=== PATIENT | male | born 1955 | race Caucasian/White ===

== ENCOUNTER 2024-12-22 13:23 | Outpatient (CLI) | payer MEDICARE, SELFPAY ==
--- OUTSIDE RECORDS SUMMARY | 2024-12-22 13:33 | XMS_ITS | Clinical Summary ---
Author Organization [facility] Address [address] [place] [address] Care Team Providers Care Head Chopper Name Role Phone Anamaria Jose DO Primary Care Provider +1- [phone] Allergies No known active allergies Encounters Date Type Department Care Team Description 11/12/2024 Telephone [facility] Neurology at [address] [place] [address] Greer Mcmanus DO Scheduling Appointments 11/08/2024 1:29 PM CDT - 11/08/2024 11:59 PM CDT Hospital Encounter [facility] [address] [place] [address] Low back pain, unspecified back pain laterality, unspecified chronicity, unspecified whether sciatica present; Radiculopathy, lumbar region; Anesthesia of skin; Paresthesia of skin Discharge Disposition: Discharge to home or self care from Last 3 Months Social History Tobacco Use Types Packs/Day Years Used Date Smoking Tobacco: Never Assessed Sex and Gender Information Value Date Recorded Sex Assigned at Not on file 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 Gender Identity Not on file Sexual Orientation Not on file Plan of Treatment Health Maintenance Due Date Last Done Comments Colon Cancer Screening-Colonoscopy 1955 Depression Screening 1955 Fall Risk Assessment 1955 Hepatitis C Screening 1955 Prostate Cancer Screening-PSA 1955 Hepatitis B Screening 09/22/1973 Zoster Vaccine (1 of 2) 09/22/2005 Abdominal Aortic Aneurysm (A AA) Screen 09/22/2020 Well Visit 65+ 09/22/2020 Covid-19 Vaccine (4 - 2024-25 season) 2024 07/11/2021, 12/13/2020, 11/22/2020 DTaP/Tdap/Td Vaccine (2 - Td or Tdap) 05/30/2024 Influenza Vaccine (#1) 2025 04/10/2022, 2020 Pneumococcal vaccine 65+ Completed 04/10/2022, 02/03 Procedures Procedure Name Priority Date/Time Associated Diagnosis Comments MRI LUMBAR SPINE W WO CONTRAST Schedule Routine, Read Routine (OP Routine) 11/08/2024 2:36 PM CDT Low back pain, unspecified back pain laterality, unspecified chronicity, unspecified whether sciatica present Radiculopathy, lumbar region Anesthesia of skin Paresthesia of skin from Last 3 Months Results * MRI Lumbar Spine W WO Contrast (11/08/2024 2:36 PM CDT) Anatomical Region Laterality Modality Spine N/A Magnetic Resonan ce 11/10/2024 7:42 AM CDT Impressions 11/10/2024 7:42 AM CDT 1. Large central focal disc extrusion at the L4-L5 level, severely narrowing the canal and compressing the traversing nerve roots within the lumbar thecal sac at this level. 2. Moderately severe degenerative disc disease with Modic type II endplate changes at L5-S1, with associated moderate bilateral foraminal narrowing. Electronically signed by: Bennie Roach M.D. Narrative 11/10/2024 7:42 AM CDT EXAMINATION: Magnetic resonance imaging (MRI) of the lumbar spine without and with contrast DATE: 11/08/2024 HISTORY: Lumbar radiculopathy. TECHNIQUE: MRI of the lumbar spine was performed before and after the administration of 15 mL intravenous gadolinium contrast according to standard protocol. FINDINGS: No prior study is available for comparison. Lumbar alignment is anatomic, albeit with minimal retrolisthesis of L5 on S1. Vertebral body heights are maintained without acute compression. There are Modic type II fatty endplate changes at the L5-S1 level with moderately severe underlying degenerative disc disease. Otherwise mild multilevel degenerative disc disease throughout the lumbar spine. The conus medullaris terminates at the level of L1-L2 and the distal spinal cord signal intensity is normal. No soft tissue abnormality is identified. T12-L1: There is a small broad-based disc bulge, slightly asymmetric to the left. No spinal stenosis. Mild bilateral facet hypertrophy. Mild left-sided foraminal narrowing. L1-L2: Small broad-based disc bulge. No spinal stenosis. Mild bilateral facet hypertrophy. No significant foraminal stenosis. L2-L3: Small broad-based disc bulge and infolding of the ligamentum flavum. No significant spinal stenosis. Mild bilateral facet hypertrophy. No significant foraminal stenosis. L3-L4: Small broad-based disc bulge and infolding of the ligamentum flavum. Mild spinal stenosis. Mild bilateral facet hypertrophy. Mild bilateral foraminal narrowing. L4-L5: There is herniated nucleus pulposus at this level, with a peripherally enhancing bulbous focal disc extrusion located centrally and measuring approximately 10 x 9 x 8 mm in size protruding into the central canal and causing severe stenosis and compressing the traversing nerve roots within the thecal sac. This lesion is probably best seen on image 8 of series 10. Moderately severe bilateral facet hypertrophy. Mild bilateral foraminal narrowing. L5-S1: Mild posterior disc hypertrophy. No spinal stenosis. Mild bilateral facet hypertrophy. Moderately severe bilateral foraminal narrowing. Procedure Note Bennie Roach MD - 11/10/2024 EXAMINATION: Magnetic resonance imaging (MRI) of the lumbar spine without and with contrast DATE: 11/08/2024 HISTORY: Lumbar radiculopathy. TECHNIQUE: MRI of the lumbar spine was performed before and after the administration of 15 mL intravenous gadolinium contrast according to standard protocol. FINDINGS: No prior study is available for comparison. Lumbar alignment is anatomic, albeit with minimal retrolisthesis of L5 on S1. Vertebral body heights are maintained without acute compression. There are Modic type II fatty endplate changes at the L5-S1 level with moderately severe underlying degenerative disc disease. Otherwise mild multilevel degenerative disc disease throughout the lumbar spine. The conus medullaris terminates at the level of L1-L2 and the distal spinal cord signal intensity is normal. No soft tissue abnormality is identified. T12-L1: There is a small broad-based disc bulge, slightly asymmetric to the left. No spinal stenosis. Mild bilateral facet hypertrophy. Mild left-sided foraminal narrowing. L1-L2: Small broad-based disc bulge. No spinal stenosis. Mild bilateral facet hypertrophy. No significant foraminal stenosis. L2-L3: Small broad-based disc bulge and infolding of the ligamentum flavum. No significant spinal stenosis. Mild bilateral facet hypertrophy. No significant foraminal stenosis. L3-L4: Small broad-based disc bulge and infolding of the ligamentum flavum. Mild spinal stenosis. Mild bilateral facet hypertrophy. Mild bilateral foraminal narrowing. L4-L5: There is herniated nucleus pulposus at this level, with a peripherally enhancing bulbous focal disc extrusion located centrally and measuring approximately 10 x 9 x 8 mm in size protruding into the central canal and causing severe stenosis and compressing the traversing nerve roots within the thecal sac. This lesion is probably best seen on image 8 of series 10. Moderately severe bilateral facet hypertrophy. Mild bilateral foraminal narrowing. L5-S1: Mild posterior disc hypertrophy. No spinal stenosis. Mild bilateral facet hypertrophy. Moderately severe bilateral foraminal narrowing. IMPRESSION: 1. Large central focal disc extrusion at the L4-L5 level, severely narrowing the canal and compressing the traversing nerve roots within the lumbar thecal sac at this level. 2. Moderately severe degenerative disc disease with Modic type II endplate changes at L5-S1, with associated moderate bilateral foraminal narrowing. Electronically signed by: Bennie Roach M.D. Anamaria Jose DO [facility] MRI PROCEDURES Final R esult from Last 3 Months Insurance MEDICARE MEDICARE Care Teams Head Chopper Relationship Specialty Start Date End Date Anamaria Jose DO [facility] [address] [address] PCP - General Family Medicine 11/03/24
--- OUTSIDE RECORDS SUMMARY | 2024-12-22 13:33 | XMS_ITS | Referral Summary ---
Author Organization [facility] Address [address] [place] [address] Care Team Providers Care Freight Weigher Name Role Phone Anamaria Jose Primary Care Provider +1- [phone] Encounters Date Type Department Care Team Description 11/12/2024 Telephone [facility] Neurology at [address] [place] [address] Greer Mcmanus DO Scheduling Appointments 11/08/2024 1:29 PM CDT - 11/08/2024 11:59 PM CDT Hospital Encounter 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 Anamaria Jose DO IM MRI PROCEDURES Final R esult from Last 3 Months Insurance MEDICARE MEDICARE Care Teams Freight Weigher Relationship Specialty Start Date End Date Anamaria Jose DO [address] [place] [address] DR MORRISSEY [address] [place] [id number] PCP - General Family Medicine 11/03/24
--- NOTE | 2024-12-22 14:34 | ECG_ITS ---
Test Date: 2024-12-22 14:51:17 Measurements Intervals [place] Rate: 103 P: 46 NE: 162 QRS: 24 QRSD: 93 T: 28 QT: 319 QTc: 419 Interpretive Statements SINUS TACHYCARDIA WITH FREQUENT VENTRICULAR PREMATURE COMPLEXES ABNORMAL RHYTHM ECG No previous ECG available for comparison Electronically Signed On 12-22-2024 15:27:26 CDT by Elijah Ortega M.D.
[2024-12-22 15:04] LABS: Add Urine Microscopic? YES; Appearance Urine Clear (Clear); Glucose Urine UA Negative (Negative); Leukocyte Esterase Ur Trace LEU/UL (Negative); Nitrate Urine Negative (Negative); Non Pathogenic Casts 0-2; Specific Grav Ur 1.013 (1.001-1.035)
[2024-12-22 15:12] LABS: INR 1.1; Prothrombin Time 13.9 Seconds (11.1-14.7)
[2024-12-22 15:13] LABS: Partial Thromboplastin Time 30.1 Seconds (22.3-36.8)
== END 2024-12-22 13:24 | disposition home or self-care (01) ==
LOC: ANHSURGERY 13:28
PROVIDERS: PCP Family Medicine; Visit Provider Neurological Surgery
DX: E78.5 Hyperlipidemia, unspecified (principal); M51.26 Other intervertebral disc displacement, lumbar region; Z01.818 Encounter for other preprocedural examination; R94.31 Abnormal electrocardiogram [ECG] [EKG]
CPT/HCPCS: 36415; 81001; 85610; 85730; 93005

== ENCOUNTER 2025-01-02 02:15 | Day surgery (SDC) | payer MEDICARE, SELFPAY ==
[2024-12-22 13:46] VITALS: BMI 26.5
[2024-12-22 13:52] VITALS: BP 149/90; PULSE 64; RESP 16; TEMP 37.1; O2SAT 97
--- NOTE | 2024-12-22 14:06 | PC.NURSE ---
Report to the Outpatient Waiting Room, entrance under the green pavilion located off [facility], at time ___8:00AM____ on date ___01/02/25____. Planned Procedure Time: ___10:00AM .? Time changes happen often and if your time is changed the preop area will call you the afternoon before. - You and your visitor will be asked to self-screen and do not enter if you have any COVID symptoms. Please call surgeon if you need to reschedule. - A mask is optional within the hospital at this time. Patients may have clear liquids (water, carbonated beverages, clear teas, apple juice) until 3 hours prior to surgery (7:00AM) with a maximum of 20 ounces. - No food from midnight until time of surgery and no smoking, or chewing tobacco (or any form of nicotine). No chewing gum, candy or mints. Take only the following medications with a SIP of water on the morning of surgery: NONE DO NOT STOP ANY OF YOUR OTHER PRESCRIPTION MEDICATIONS PRIOR TO SURGERY EXCEPT THE FOLLOWING Hold all vitamins and supplements for 3 days per anesthesiologist. Medications to discontinue per physician ___HOLD ALL NSAIDS(NAPROXEN) 7 DAYS PRE-OP PER DR CAPUTO Date to take last dose 12/25/24 Please no make-up, nail greek, hairspray, perfume, deodorant, or body powder the day of surgery.? No jewelry (including any body piercings) or valuables the day of surgery, leave them at home.? Please take a shower or bath the night before, or the morning of, surgery with an antibacterial soap.? Wear comfortable, loose fitting clothing.? - Jewelry must be removed prior to entering the operating room.? Rings and piercings that are not removed may be cut off. - The hospital will not accept responsibility for valuables.? - Please leave all valuables, including medications, at home the day of surgery. If you are going home after surgery, a licensed professional driver must drive you home.? - NO public transportation without another adult if you receive anesthesia. - We recommend that an adult stay with you for 24 hours following discharge. - We also recommend that you do not drive, make important decision, drink alcoholic beverages, or take any drugs that were not prescribed by your health care provider for at least 24 hours after your discharge time. Follow any additional instructions given to you from your surgeon. Telephone instructions given to ____PATIENT & WIFE and asked if any additional questions and then verbalized understanding. Patient advised to call surgeon office or pre surgery nurse liaison [phone] if any additional questions.
[2025-01-02] VITALS (13 sets, daily range): BP systolic 150–182; BP diastolic 81–110; PULSE 69–97; RESP 12–16; TEMP 36.1–36.7; O2SAT 92–100
--- NOTE | ~2025-01-02 | XR_ITS ---
EXAMINATION: XR fluoroscopy no charge DATE: 01/02/2025 10:21 INDICATION: L4-L5 lumbar laminectomy and bilateral discectomy TECHNIQUE: 2 fluoroscopic images of the lumbar spine were obtained during procedure performed by Dr. Ellsworth. Radiologist was not present for the imaging or procedure. The amount of fluoroscopy time used d uring this procedure was 0.1 minutes. Total DAP was 1.32 Gycm^2. COMPARISON: None. FINDINGS: Images demonstrate mild disc height loss L4-L5 and moderate disc height loss at L5-S1. Soft tissue re tractors project over the L4 and L5 spinous processes. The tip of a metallic probe projects slightly more anteriorly along the posterior margin of the L4-5 facet joints and L5 lamina. Subsequent images demonstrate a small metallic probes projecting more anteriorly along the anterior margins of the L4 a nd L5 lamina. IMPRESSION: 1. Fluoroscopy utilized during neurosurgical procedure at L4-L5. See procedure note for further detai l. Reviewed, dictated and finalized at location A. IMPRESSION: 1. Fluoroscopy utilized during neurosurgical procedure at L4-L5. See procedure note for further detail.
--- OUTSIDE RECORDS SUMMARY | 2025-01-02 02:18 | XMS_ITS | Clinical Summary ---
Author Organization [facility] Address [address] [place] [address] Care Team Providers Care Compliance Professional Name Role Phone Anamaria Jose DO Primary Care Provider +1- [phone] Allergies No known active allergies Encounters Date Type Department Care Team Description 11/12/2024 Telephone [facility] Neurology at [address] [place] [address] Greer Mcmanus DO Scheduling Appointments 11/08/2024 1:29 PM CDT - 11/08/2024 11:59 PM CDT Hospital Encounter [facility] Imaging [address] [place] [address] Low back pain, unspecified back [...] on file 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 Anamaria Jose DO [facility] MRI PROCEDURES Final R esult from Last 3 Months Insurance MEDICARE MEDICARE Care Teams Compliance Professional Relationship Specialty Start Date End Date Anamaria Jose DO [facility] [address] [address] PCP - General Family Medicine 11/03/24
--- OUTSIDE RECORDS SUMMARY | 2025-01-02 02:18 | XMS_ITS | Referral Summary ---
Author Organization [facility] Address [address] [place] [address] Care Team Providers Care Chemical Test Engineer Name Role Phone Anamaria Jose Primary Care Provider +1- [phone] Encounters Date Type Department Care Team Description 11/12/2024 Telephone [facility] Group Neurology at [address] [place] [address] Greer Mcmanus DO Scheduling Appointments 11/08/2024 1:29 PM CDT - 11/08/2024 11:59 PM CDT Hospital Encounter [facility] Imaging [address] [place] [address] Low back pain, unspecified back [...] on file 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
[2025-01-02] MEDS: LACTATED RINGERS 1,000 ML 30 ML IV CONT ×2 (08:30→13:13)
--- NOTE | 2025-01-02 08:53 | WPDANESEPPF ---
Anes - Initial Pre Proc Eval Procedure: Operation Date: 01/02/25 10:00 Proposed Procedures p L4-L5 Lumbar Laminectomy and Bilateral Discectomy - Yeyo Ellsworth MD Date/Time: 01/02/25 08:53 Surgeon: Yeyo Ellsworth MD Pre Op Diagnosis: herniated disc Patient Data Age: 69 Gender: M Height: 1.77 m Weight: 99.3 kg Last Vital Signs Temp 36.7 C 01/02/25 08:26 Pulse 97 01/02/25 08:26 Resp 14 01/02/25 08:26 BP 155/86 H 01/02/25 08:26 Pulse Ox 100 01/02/25 08:26 O2 Del Method Room Air 01/02/25 08:26 Allergies Allergy/AdvReac Type Severity Reaction Status Date / Time No Known Allergies Allergy Verified 01/02/25 08:42 Home Medications ?Medication ?Instructions ?Recorded ?Confirmed ?Type cyclobenzaprine 10 mg tablet 10 mg PO TID PRN muscle spasm #90 11/03/24 12/22/24 Rx tabs rosuvastatin 5 mg tablet 2.5 mg (1/2 x 5 mg) PO WEEKLY #45 11/06/24 12/22/24 Rx tabs naproxen 500 mg tablet 500 mg PO BID PRN pain #180 tabs 11/20/24 01/02/25 Rx Patient hx anesthesia problems: none Family hx anesthesia problems: none Results Review: All pre-operative results and documents have been reviewed as part of the pre-operative evaluation. [facility] Past Medical History Medical History (Updated 01/01/25 @ 18:00 by Freddy Meléndez DO) Hyperlipemia Family History Family History Father Colon cancer Social History Social History (Updated 01/02/25 @ 09:01 by Freddy Meléndez DO) Smoking status: Never smoker Alcohol intake: current Drinks per week: 14 Alcohol use details: 2-3 drinks/day Substance use: never Substance use type: does not use Do You Feel Safe in your Home?: Yes Lack of Transportation: No Lack of Food: Never True Current Housing: I Have Housing Concerned About Future Housing: No Difficulty Paying Gas/Electric Bills: No Difficulty Paying for Meds: No Currently Unemployed: No Education: Trade/Vocational Certificate Anes - Eval Final PreProcedure Day of Procedure 01/02/25 08:53 Patient weight: obese Heart: regular rate and rhythm Lungs: clear to auscultation Airway: Mallampati scale class II and special considerations poor dentition Neurological: alert and oriented Last oral intake: >/= 8 hours ASA classification: III Emergent: no Anesthetic plan: proceed Anesthesia type and monitoring: general ETT and standard monitoring Results Review: All pre-operative results and documents have been reviewed as part of the pre-operative evaluation. Informed Consent: The patient's anesthetic plan and its attendant risks and benefits were discussed with the patient/family/POA. Questions were solicited and answers provided to the satisfaction of the patient/family/POA.
--- NOTE | 2025-01-02 08:55 | P.HP_ITS ---
H&P: HPI History of Present Illness Date/Time: 01/02/25 08:55 Chief Complaint: 69 year old male who presents with left > right leg pain found to have a large disc herniation and lumbar spinal stenosis at L4/5. He failed conservative management and is now here for an L4/5 bilateral lumbar laminectomy and discectomy. Review of Systems Review of Systems: a full review of systems is negative other than what was listed in [facility] Past Medical History Medical History (Updated 01/01/25 @ 18:00 by Freddy Meléndez DO) Hyperlipemia Family History Family History Father Colon cancer Social History Social History (Updated 11/28/24 @ 10:38 by Tali Roberts CMA) Smoking status: Never smoker Alcohol intake: current Drinks per week: 5 Alcohol use details: Gin Substance use: never Substance use type: does not use Do You Feel Safe in your Home?: Yes Lack of Transportation: No Lack of Food: Never True Current Housing: I Have Housing Concerned About Future Housing: No Difficulty Paying Gas/Electric Bills: No Difficulty Paying for Meds: No Currently Unemployed: No Education: Trade/Vocational Certificate Meds Home Medications and Allergies Home Medications ?Medication ?Instructions ?Recorded ?Confirmed ?Type cyclobenzaprine 10 mg tablet 10 mg PO TID PRN muscle spasm #90 11/03/24 12/22/24 Rx tabs rosuvastatin 5 mg tablet 2.5 mg (1/2 x 5 mg) PO WEEKLY #45 11/06/24 12/22/24 Rx tabs naproxen 500 mg tablet 500 mg PO BID PRN pain #180 tabs 11/20/24 01/02/25 Rx Allergies Allergy/AdvReac Type Severity Reaction Status Date / Time No Known Allergies Allergy Verified 01/02/25 08:42 Vital Signs Vital Signs - 24 hr 01/02/25 08:26 Temperature 98.1 F Pulse Rate 97 Respiratory Rate 14 Blood Pressure 155/86 H Pulse Oximetry 100 Oxygen Delivery Room Air Exam Narrative: Awake alert no acute distress MAEW 10/06 including IP/Q/H/PF/DF/EHL Assessment and Plan Assessment and plan (1) Lumbar radiculopathy, acute: Code(s): M54.16 - Radiculopathy, lumbar region Status: Acute Assessment and Plan: 69 year old male with L4/5 spinal stenosis and disc herniation here for L4/5 bilateral lumbar laminectomy and discectomy.
--- NOTE | 2025-01-02 08:55 | WPDHPUPDATE1 ---
History and Physical Update Update Date/Time: 01/02/25 08:55 History and Physical has been reviewed, including an updated exam of the patient. There are NO changes in the patient's condition. Risks, benefits, and alternatives have been discussed and questions answered. Patient agrees to proceed with procedure.
[2025-01-02] MEDS: ceFAZolin 2 GM in SODIUM CHLORIDE 0.9% IV 50 ML 100 ML IVPB (09:08)
[2025-01-02] MEDS: BUPIVACAINE/EPINEPHRINE 0.5% 50 ML VIAL 10 ML INFILTRATE (09:49)
--- NOTE | 2025-01-02 10:37 | W.PM.PROC2 ---
Procedure Note - Detailed Date of Procedure 01/02/25 Pre-op Diagnosis herniated disc Post-op Diagnosis Same Procedure Performed Bilateral L4-5 lumbar laminectomy and bilateral medial facetectomy as well as diskectomy from the patient's left side Use of operating microscope for microdissection Surgeon Yeyo Ellsworth MD Rn Care Manager Josette Anesthesia General Indications Low back pain and lumbar radiculopathy with L4-5 spinal stenosis central L4-5 disc bulge Description of Procedure The patient was brought into the operating room and once intubation was performed and all lines were placed the patient was positioned prone onto the Jerome frame. At this point all bony prominences were padded. The lower fluoroscopy was brought in to confirm the L4-5 level. The skin was marked. Patient was then prepped and draped in the usual sterile fashion. Final time-out was performed to indicate correct patient procedure and site. Local anesthetic was infiltrated along the planned incision. I then opened the incision with a scalpel down to the fascia. I then used Bovie electrocautery to do perform a subperiosteal dissection across L4-5. Self-retaining retractors were placed. The C-arm was brought in and confirmed the L4-5 level. At this point I brought in the microscope and removed the spinous process over L4 and L5. I then used a drill to expand the lamina laminectomy. At this point I carefully used an upgoing curette to undermine the ligamentum flavum and the facet joints and performed a medial facetectomy with Margareth Bruce. The thecal sac was now decompressed. I then used a Rhoton 8 to gently dissect lateral to the nerve root and identify disc herniation. The disc bulge was very very central and does not clearly impinging the lateral recess. I then used a nerve root retractor to hold back the nerve root and the thecal sac and I used a 11 blade to cut into the disc and used various curettes and rongeurs to remove disc bulge. I then primarily used a down pushing curette to push down on the remaining sent central portion of the disc bulge into the disc space. Overall the thecal sac at this point field very relaxed and there was nothing impinging his nerve root. The wound was then irrigated hemostasis was obtained I closed the wound in layers. Patient was then turned over supine and returned to Anesthesia for extubation. Estimated Blood Loss 25 Complications No immediate complications Condition Stable [facility] Billing Surgery - Charge Forward: Surgery Billing
[2025-01-02] MEDS: fentaNYL CITRATE INJ (*CRX) 100 MCG/2 ML VIAL 25 MCG IV PUSH ×4 (11:14→13:39)
[2025-01-02] MEDS: ONDANSETRON INJ 4 MG/2 ML VIAL IV PUSH (12:07)
[2025-01-02] MEDS: oxyCODONE HCL (*CRX) 5 MG TAB IR PO (12:07)
== END 2025-01-02 14:46 | disposition home or self-care (01) ==
PROVIDERS: PCP Family Medicine; Visit Provider Neurological Surgery
PROC: (CPT 63005; principal; 2025-01-02 10:00)
DX: M54.16 Radiculopathy, lumbar region (principal); M51.26 Other intervertebral disc displacement, lumbar region; E78.5 Hyperlipidemia, unspecified; E66.9 Obesity, unspecified; Z68.31 Body mass index [BMI] 31.0-31.9, adult; Z79.1 Long term (current) use of non-steroidal anti-inflammatories (NSAID); Z80.0 Family history of malignant neoplasm of digestive organs
CPT/HCPCS: 63047; 99199; J0690; A9270; J1100; J1200; J2003; J2250; J2405; J2704; J3010; J7120